=== PATIENT | female | born 1985 ===

== ENCOUNTER 2018-07-05 15:55 | Emergency (ER) | payer SELFPAY ==
[2018-07-05 16:06] VITALS: RESP 18; TEMP 98.2
[2018-07-05] MEDS ORDERED: DiphenhydrAMINE 50 mg/ml Inj IM STA (16:36)
[2018-07-05] MEDS ORDERED: DiphenhydrAMINE 50 mg/ml Inj ONE (17:09)
--- NOTE | 2018-07-05 17:13 | ED PDOC ---
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 Patient reports symptoms came on after eating peanuts and took Benadryl with moderate relief. Yesterday evening, she ate peanuts again. Rash remained constant but pruritus became worse. Reports no shortness of breath, throat swelling, or fever. PMD: none provided Past Medical History Reviewed: Historical Data, Nursing Documentation, Vital Signs Vital Signs: Last Vital Signs Temp 98.2 F 07/05/18 16:04 Pulse 69 07/05/18 16:04 Resp 18 07/05/18 16:04 BP 111/59 L 07/05/18 16:04 Pulse Ox 100 07/05/18 16:04 - Medical History PMH: No Chronic Diseases - Surgical History Surgical History: No Surg Hx - Family History Family History: States: Unknown Family Hx - Home Medications Home Medications: Ambulatory Orders Medication Instructions Recorded DiphenhydrAMINE [Benadryl] 50 mg PO Q6 PRN #10 cap 07/05/18 predniSONE [Prednisone] 40 mg PO DAILY #8 tab 07/05/18 - Allergies Allergies/Adverse Reactions: Allergies Allergy/AdvReac Type Severity Reaction Status Date / Time No Known Allergies Allergy Verified 07/05/18 16:04 Review of Systems ROS Statement: Except As Marked, All Systems Reviewed And Found Negative Constitutional: Negative for: Fever ENT: Negative for: Other (throat swelling) Respiratory: Negative for: Shortness of Breath Skin: Positive for: Rash Physical Exam - Reviewed Nursing Documentation Reviewed: Yes Vital Signs Reviewed: Yes - Physical Exam Appears: Positive for: No Acute Distress (Speaking full sentences) Skin: Positive for: Rash (Bilateral anterior thighs with faint erythema; no break in skin integrity, pustules, vesicles, or streaking) ENT: Positive for: Normal ENT Inspection Respiratory: Positive for: Normal Breath Sounds. Negative for: Wheezing, Respiratory Distress - ECG O2 Sat by Pulse Oximetry: 100 (RA) Pulse Ox Interpretation: Normal - Progress Condition: Re-examined, Improved Medical Decision Making Medical Decision Making: Initial Impression: Rash Initial Plan: --Benadryl 50mg IM --Prednisone 40mg PO Patient advised to follow up with clinic for allergy testing but is to return to the ED if symptoms worsen. Patient also advised to avoid anything containing peanuts. Scribe Attestation: Documented by Marin Navas acting as a scribe for Ankur NOLAN. Provider Scribe Attestation: All medical record entries made by the Scribe were at my direction and personally dictated by me. I have reviewed the chart and agree that the record accurately reflects my personal performance of the history, physical exam, medical decision making, and the department course for this patient. I have also personally directed, reviewed, and agree with the discharge instructions and disposition. Disposition - Clinical Impression Clinical Impression: Rash - Patient ED Disposition Is Patient to be Admitted: No - Disposition Referrals: [facility] [Outside] Disposition: Routine/Home Disposition Time: 17:40 Condition: IMPROVED Additional Instructions: SHAKIRA MORALES, thank you for letting us take care of you today. Your provider was Tommy Liu MD and you were treated for RASH. The emergency medical care you received today was directed at your acute symptoms. If you were prescribed any medication, please fill it and take as directed. It may take several days for your symptoms to resolve. Return to the Emergency Department if your symptoms worsen, do not improve, or if you have any other problems. Please contact your doctor or call one of the physicians/clinics you have been referred to that are listed on the Patient Visit Information form that is included in your discharge packet. Bring any paperwork you were given at discharge with you along with any medications you are taking to your follow up visit. Our treatment cannot replace ongoing medical care by a primary care provider outside of the emergency department. Thank you for allowing the [facility] team to be part of your care today. If you had an X-Ray or CT scan: A Radiologist will review the ED reading if any change in treatment is needed we will contact you. If you had a blood, urine, or wound culture: It will take several days for the results, if any change in treatment is needed we will contact you. If you had an STI test: It will take 48 hours for the results. Please call after 1 week if you have not heard back. Prescriptions: DiphenhydrAMINE [Benadryl] 50 mg PO Q6 PRN #10 cap PRN Reason: itching or rash predniSONE [Prednisone] 40 mg PO DAILY #8 tab Instructions: Skin Rash (DC) Forms: [employer] ([place])
[2018-07-05 18:34] VITALS: BP 112/70; PULSE 70
[2018-07-05 18:36] VITALS: O2SAT 100
== END 2018-07-05 18:41 | disposition home or self-care (01) ==
LOC: H.ER 15:55
DX: R21 Rash and other nonspecific skin eruption (principal)
CPT/HCPCS: 81025; 96372; 99282; J1200